=== PATIENT | male | born 1955 | race Caucasian/White ===

== ENCOUNTER 2017-07-07 16:34 | Emergency (ER) | payer BC ==
[~2017-07-07] VITALS: Ht 188 cm; Wt 107.7 kg
[2017-07-07 17:02] VITALS: BP 169/96; PULSE 63; RESP 16; TEMP 98.3; O2SAT 97
[2017-07-07] MEDS ORDERED: LOSA50TA PO (17:32)
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
[2017-07-07] MEDS ORDERED: ACETAMINOPHEN/HYDROcodone 325 MG/5 MG TAB PO ONE (18:15)
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
[2017-07-07] MEDS ORDERED: NORC5TAB PO (19:09)
== END 2017-07-07 19:21 | disposition home or self-care (01) ==
LOC: PHEFT 16:34
DX: M25.512 Pain in left shoulder (principal); I10 Essential (primary) hypertension; Z79.899 Other long term (current) drug therapy
CPT/HCPCS: 73030; 99283